=== PATIENT | female | born 2000 | race Two or more races ===

== ENCOUNTER 2025-03-20 19:32 | Emergency (ER) | payer OTHER ==
[~2025-03-20] VITALS: Ht 162.6 cm; Wt 70.3 kg
[2025-03-20 20:57] VITALS: BP 112/76; O2SAT 100
[2025-03-20] MEDS ORDERED: MOUNJARO2.5 MG/0.5 (21:03)
[2025-03-20] MEDS ORDERED: LEXAPRO20 MG PO (21:04)
[2025-03-20] MEDS ORDERED: ONDANSETRON HCL 2 MG/ML VIAL IV ONE (22:00)
[2025-03-20] MEDS ORDERED: KETOROLAC TROMETHAMINE 30 MG VIAL IU ONE (22:00)
[2025-03-20] MEDS ORDERED: 0.9 % SODIUM CHLORIDE 1,000 ML IV ONE (22:00)
[2025-03-20] MEDS ORDERED: FAMOTIDINE/PF 20 MG/2 ML VIAL IV ONE (22:00)
[2025-03-20] MEDS ORDERED: ONDANSETRON HCL 2 MG/ML VIAL ONE (22:02)
[2025-03-20] MEDS ORDERED: KETOROLAC TROMETHAMINE 30 MG VIAL ONE (22:02)
[2025-03-20] MEDS ORDERED: FAMOTIDINE/PF 20 MG/2 ML VIAL ONE (22:03)
[2025-03-20 23:24] LABS: BASO % 0.3 % (0.1-1.2); EOS # 0.20 (0.04-0.54); EOS % 2.5 % (0.7-7.0); LYMPH # 2.77 (1.18-3.74); LYMPH % 35.2 % (19.3-53.1); MEAN PLATELET VOLUME 12.10 fl (9.4-12.4); MONO # 0.42 (0.24-0.82); MONO % 5.3 % (4.7-12.5); NEUT # 4.45 (1.56-6.13); NEUT % 56.4 % (34.0-71.1); RED CELL DISTRIBUTION WIDTH 12.1 % (11.6-14.4)
[2025-03-20 23:57] LABS: ALT/SGPT 17.0 U/L (12-78); AST/SGOT 15.0 U/L (15-37); BILIRUBIN TOTAL 0.27 mg/dL (0.3-1.2); BUN CREA RATIO 19.0 (7.0-25.0); CREATININE SERUM 0.79 mg/dL (0.55-1.02); GFR 90.19; GLOBULINA 3.4 G/DL (2.4-3.5); GLUCOSE FASTING 73.0 mg/dL (65-100); OSMOLALITY SERUM 281.0 MOSM/KG (275-295)
[2025-03-21 00:46] LABS: URINE APPEARANCE Clear; URINE BILIRRUBIN Negative (NEGATIVE); URINE BLOOD Negative; URINE COLOR Yellow; URINE GLUCOSE Negative (NEGATIVE); URINE KETONE Trace (NEGATIVE); URINE LEUKOCYTE Trace; URINE NITRATE Negative; URINE PROTEIN Negative (NEGATIVE); URINE UROBILINOGEN 1.0 E.U./dl
[2025-03-21 00:49] LABS: URINE BACTERIA 466.8 uL (0.0-1933); URINE EPITHELIAL CELLS 28.1 uL (0.0-38.8); URINE WBC 87.5 uL (0.0-23.2)
[2025-03-21 01:00] LABS: URINE CAST 0.00 uL (0.0-1.40); URINE RBC 1.0 uL (0.0-20.8)
[2025-03-21] MEDS ORDERED: PEPCID AC20 MG PO (02:44)
[2025-03-21] MEDS ORDERED: KETO10TA2 PO (02:44)
[2025-03-21] MEDS ORDERED: MACROBID 100 M100 MG PO (02:44)
== END 2025-03-21 03:06 | disposition home or self-care (01) ==
LOC: ER 19:32
PROVIDERS: General Practice
DX: N39.0 Urinary tract infection, site not specified (principal); R10.20 Pelvic and perineal pain unspecified side
CPT/HCPCS: 36415; 74177; Q9965

== ENCOUNTER → 2025-05-15 | Emergency (ER) | payer OTHER ==
[~2025-05-15] VITALS: Ht 162.6 cm; Wt 70.3 kg
[~2025-05-15] MED LIST: ACETAMINOPHEN 500 MG GEL..CAP PO STA; KETO10TA2 PO; LEXAPRO20 MG PO; MACROBID 100 M100 MG PO; MOUNJARO2.5 MG/0.5; PEPCID AC20 MG PO
[2025-05-15 00:45] VITALS: BP 106/72; O2SAT 100
== END | disposition home or self-care (01) ==
LOC: ER 00:34
DX: S09.8XXA Other specified injuries of head, initial encounter (principal); W22.01XA Walked into wall, initial encounter; Y93.89 Activity, other specified; Y92.018 Other place in single-family (private) house as the place of occurrence of the external cause; E11.9 Type 2 diabetes mellitus without complications; Z79.4 Long term (current) use of insulin